=== PATIENT | male | born 1960 | race Caucasian/White ===

== ENCOUNTER 2017-11-02 21:02 | Emergency (ER) | payer OTHER ==
[2017-11-02] MEDS: IBUPROFEN 600 MG TAB PO (22:49)
== END 2017-11-03 00:49 | disposition home or self-care (01) ==
LOC: FTE 11-03 00:49
DX: R07.81 Pleurodynia (principal); R07.89 Other chest pain
CPT/HCPCS: 71045; 71100; 93005; 99284-25